=== PATIENT | female | born 1940 | race Caucasian/White ===

== ENCOUNTER 2020-10-23 09:36 | Inpatient (IN) | payer OTHER ==
[~2020-10-23] VITALS: Ht 157.5 cm; Wt 59.0 kg
--- NOTE | ~2020-10-23 | HC ---
[facility] [place] [address] CONSULTATION Name: MIMI PALOMINO Room #: 516-1 ADM IN M.R.#: [id number] Admission: 10/23/20 Attend Phys: Michael Escobar MD Discharge: Date of : 44 Report #: [id number] THIS REPORT FOR: cc: FAM - Family physician unknown FAM - Family physician unknown Mor Costa MD ~ DOC #: [id number] Mor Costa MD DATE OF SERVICE: 10/25/2020 HISTORY OF PRESENT ILLNESS: This is a 80-year-old female patient who was evaluated by me for stroke. This patient is a poor historian. Her memory is not very good. I talked to nurse practitioner who is seeing her from the hospitalist group. I reviewed the notes. The best history I can get from this patient is that she had a stroke about 1 year ago and she was in an outside hospital and then she was transferred to rehabilitation. The stroke affected the left side of the body. She says during that admission, she was also diagnosed with atrial fibrillation and was started on anticoagulation. I do not have any of those records. Now, she said she was admitted to [facility] for left-sided weakness. The history she gives is that she has mostly the left lower extremity weakness. The history is complicated by the fact that she has right leg weakness in the baseline. She has urinary incontinence for 6 months to 1 year as I understand. REVIEW OF SYSTEMS: A 14-point review of system is positive for chronic anticoagulation. She has a history of hypertension, looks like her memory is poor. She has a degenerative disease of the knee. Right hip, she has a problem for a long time and she has problem with the whole leg for a long time. 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 She is not complaining of any new eye, ENT, cardiac, respiratory, musculoskeletal, constitutional, dermatological, hematological, psychiatric throat, allergic symptoms associated with present symptomatology. PAST MEDICAL HISTORY: Positive for stroke with residual left-sided weakness. FAMILY HISTORY: Negative for any early age strokes. SOCIAL HISTORY: She does not smoke and she indicates that she used to use some alcohol at night, but a good log told me not to do it and she stopped doing that. She is alert. She can tell me what month it is. She had a tough time telling me what day it is, but ultimately she was able to do that. Her memory is poor, but speech is intact. Cranial nerve examination 2-12 looks mostly unremarkable. As best I can tell, she is weak in the left upper extremity compared to right, [facility] [address] [place] [address] CONSULTATION Name: GEORGETTEMIMI Room #: 516-1 [facility] IN M.R.#: [id number] Admission: 10/23/20 Attend Phys: Michael Escobar MD Discharge: Date of : 44 Report #: [id number] but she says mostly it is old. She is weak in the left lower extremity also, but even the right extremity, she moves poorly. There is no meningeal sign. There is no cerebellar sign. Fundus examination cannot be done. Reflexes are symmetrical. I can tell, but plantars she says she can appreciate the feeling in both lower extremities. She has a history of atrial fibrillation, but presently is in sinus rhythm. No respiratory difficulty was noticed. VITAL SIGNS: Blood pressure is 122/44, respirations 16, pulse of 62, temperature is 98. LABORATORY DATA: Indicate a white count of 7.1. Potassium is 3.1. Vitamin B12 is normal. IMPRESSION: Very complicated patient. I think first we need to see if she really extended her stroke or not. For that she will need an MRI of the brain. She is weak in both lower extremities. It is possible the left leg weakness is because of stroke and the right sided weakness is because of her hip issues, but she also is incontinent of the urine which may be because of rectal surgery, but in this case, I think a spine lesion which can cause all these symptoms, needs to be excluded. RECOMMENDATIONS: I will suggest doing the MRI of the brain and see if there is a new stroke. If new stroke occurred in spite of being on anticoagulation,further workup may be necessary in this patient. If she has a spine lesion that also needs to be addressed, but if MRIs are normal, then we need to reassess to see what further workup needs to be done. The patient will also follow this plan. Thank you very much for this referral. MD CASEY Chaney/FIONA By: [id number] Mor Costa MD /emmanuel
[2020-10-23] MEDS ORDERED: ELIQUIS5 MG PO (15:30)
[2020-10-23] MEDS ORDERED: LIPITOR20 MG PO (15:31)
[2020-10-23] MEDS ORDERED: COZAAR 25 MG TA25 MG PO (15:32)
[2020-10-23] MEDS ORDERED: DILTIAZEM ER180 M2 PO (15:33)
[2020-10-23 16:15] VITALS: BP 142/59
--- NOTE | 2020-10-23 16:15 | NUR ---
PT ARRIVED TO ROOM ACCOMPANIED BY IONA ROSS AND DEION GRANDSON. SHE LIVES IN HER OWN HOUSE AND HER GRANDSON STAYS THE NIGHT AND ALSO STAYS THURSDAY AND , IONA STAYS OVER ON THE WEEKEND. PT HAS STROKE FROM 04/17 AFFECTING LEFT SIDE. PT HAS WEAKNESS TO LEFT ARM AND LEFT LEG. PT ALSO HAS SOME WEAKNESS TO RT HIP. PT BORN WITHOUT A RT HIP BALL AND SOCKET. PT WAS ABLE TO CHEERLEAD AND RUN WITH FOOTBALL PLAYERS DOWN THE FIELD. PT STATED SHE USED TO HAVE PAIN A CHILD TO RT HIP AND PRAYED FOR PAIN RELIEF AND WAS ABLE TO HAVE NO PAIN. PT FELL A COUPLE OF TIMES AT HOME BEFORE HER HOSPITAL STAY. PT HAS WEAKNESS TO HANDS AND LEFT LEG. PT WEAR BRIEF FOR STRESS INCON. AND ALSO PT HAS URGENCY WITH BOWELS. 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 PT DAUGHTER IONA HAS DPOA AND PAPERWORK IN THE CHART. PT FROM [facility]. PT HAS PREVIOUS LEFT MASTECTOMY AND ARM ALERT BRACELET IS ON LEFT ARM. NO OPEN WOUNDS. PINK TO BUTTOCKS, SMALL SCRATCH TO RT HIP AREA AT GROIN FROM PREV. FALL. PT HAS OWN WALKER WITH HER, GLASSES, AND DENTURES. DTR STATED SHE HAD BOWEL SURGERY AND TOOK OUT 10 INCH OF COLON. PT DOES NOT HAVE AN APPITITE AND MOSTLY DRINKS PROTEIN SHAKES.
[2020-10-24 05:17] LABS: WBC 7.1 thou/uL (4.0-11.0)
[2020-10-24 05:22] LABS: HEMATOCRIT 40.2 % (37.0-47.0); HEMOGLOBIN 13.4 gm/dL (12.0-15.0); MCH 30.2 pg (26.0-34.0); MCHC 33.3 g/dL (28.0-37.0); MCV 90.7 fL (80.0-100.0); RBC 4.43 mil/uL (4.20-5.00); RDW 14.7 % (10.5-14.5)
[2020-10-24 05:41] LABS: CALCIUM 8.8 mg/dL (8.5-10.1); CREATININE 0.8 mg/dL (0.6-1.0); POTASSIUM 3.1 mmol/L (3.5-5.1)
--- NOTE | 2020-10-24 06:48 | NUR ---
ASSUMED CARE OF PT AT 1930 ON 10/23/20. PT IS A&OX4. IS ON ROOM AIR. DENIES PAIN. IS STABLE. HAS LEFT SIDED WEAKNESS. IS UP WITH 2 ASSIST TO BSC, STAND PIVOT WITH GB. FALL PRECAUTIONS & HOURLY ROUNDING CONTINUED THIS SHIFT. LABS & VITALS REVIEWED. CALL LIGHT WITHIN REACH. WILL CONTINUE TO MONITOR.
[2020-10-24 07:15] VITALS: BP 138/71
[2020-10-24 08:51] LABS: FOLIC ACID 34.5 ng/mL (8.6-58.9)
[2020-10-24 09:54] LABS: MAGNESIUM 1.9 mg/dL (1.8-2.4)
--- NOTE | 2020-10-24 11:49 | NUR ---
Nutrition: Received consult stating "poor intake". Pt voiced she doesn't like to eat and nothing ever sounds good. Has been for years. No weight loss- Reports UBW 120#. Usually eats 2 meals/day and drinks boost at least 3/day at home. Pt voices meat is hard to cut-adding mechanical chopped to diet order. Pt was pleased and stated she would eat more meat now. Food preferences obtained and menu ordering reviewed with pt. Will add Ensure enlive to all meals. Consider low nutrition risk due to stable weights and supplement intake able to meet majority of nutrition needs even despite small appetite for foods.
--- NOTE | 2020-10-24 12:48 | NUR ---
Received awake on bed. Due medications given as prescribed, able to swallow meds w/o difficulty. On room air. Vital signs stable. On MS, not on telemetry; no complains and signs of chest pain, crushing sensation and heaviness. With L sided weakness; assisted in ADLs. Falls bundle in place. On regular diet- modified to mechanically altered diet- tolerating well; no nausea, no vomiting and no abdominal pain noted; assisted and encouraged in eating and drinking. Continent of bowel and bladder, using bedside commode with moderate to max assist; gait belt. With redness at buttocks- Z guard applied; with sking tear at L groin- wound photo to be taken; dressing to be changed. No complains of pain made during assessment. No IV noted. Consults to Dr Kim, Dr Acevedo and Dr Costa called; a/w call back and further orders. To continue monitoring patient.
--- NOTE | 2020-10-24 16:14 | NUR ---
chart review. moshe spoke with daughter ying # [phone]. intro to moshe, transition of care and weekly team meeting. prior to hospital faith lives at home where her grandson and daughter are with her often in the home, has meals on wheels, "thu, , Thursday home alone from 10-4pm. they can call and check on her if needed, she sleeps sitting up, has walker and transport chair, upstairs she was walk in shower with bench and can shower her self. family has to get her up the stair 1 x week for shower, other days she sponge bath and daughter washes her hair in sink. lives in 3 story [facility]. she stays on the main level. might need extra help if she not back to her base line for at home."/ying. moshe education on life alert. will cont following as needed for dc needs.
[2020-10-24 19:44] VITALS: BP 122/44
--- NOTE | 2020-10-25 02:21 | NUR ---
assumed care approx 1900 evening 10/24. pt alert and oriented x4, talking on phone at change of shift. pt pleasant and cooperative. pt up to bathroom via w/c with 1 assist before hs. pt fitted with external catheter at hs and working well. pt appears to be sleeping soundly. bed alarm on and call light in reach. will continue to monitor.
--- NOTE | 2020-10-25 10:27 | NUR ---
WOUND CONSULT; A WOUND WAS IDENTIFIED TO THE LEFT LATERAL ABDOMINAL SKIN FOLD. ETIOLOGY IS UNDETERMINED BUT S/S CONSISTANT WITH A FUNGAL INFECTION. NO ODOR OR C/O PAIN. LINIAR WOUND MEASURES APPROX 5 X 0.2 X 0.1. RECOMMENDATIONS; -APPLY ANTIFUNGAL BARRIER CREAM BID/PRN DISCUSSED WITH AIMEE
--- NOTE | 2020-10-25 19:25 | NUR ---
ASSUMED CARE AT 0700. A&0X3. SEEMS TO BE FORGETFULL AND TENDS TO REPEAT HERSELF. DENIES PAIN. 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 LEFT SIDED WEAKNESS NOTED. ORTHO BRACE FOR R FOOT WAS ORDERED. MRI OF HEAD WAS PERFORMED DURING REQUESTED BY NEUROLOGY. NEW SKIN TEAR FOUND IN LEFT PANNOUS AREA. WOUND CARE NURSE HAS ASSESSED WOUND, AND NEW TREATMENT OF ANTIFINGAL CREAM INITIATED. SITE CARE ON NS CLEASE AND DRYING IS TO BE PERFORMED BEFORE APPLICATION OF CREAM. NO CONCERNS AT THIS TIME. WILL CONTINUE TO MONITOR.
[2020-10-25 20:00] VITALS: BP 115/71
--- NOTE | 2020-10-26 02:16 | NUR ---
assumed care approx 1900 evening 10/25. pt sitting up in bed at change of shift alert and oriented x4,pleasant and cooperative, somewhat forgetful. pt in good mood stated she had a good day with therapy. pt max assist x1 to w/c and transfer to toilet before hs. pt took hs meds with water tolerating well. pt fitted with external catheter at hs. pt appears to be sleeping soundly. bed alarm on and call light in reach. will continue to monitor.
[2020-10-26 08:00] VITALS: BP 132/75
--- NOTE | 2020-10-26 11:00 | NUR ---
ASSUMED CARE AT 0700. SLEPT FAIR. ALERT AND ORIENTATED X 2-3, FORGETFUL. PLEASANT. 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 NO COMPLAINS OF PAIN. TRANSFER IN WC TO BATHROOM. DIURESING. HAD A SMALL BM TODAY. APPETITE POOR, DRINK HER PROTEIN SUPPLEMENTS. L LAT PANNOUS WOUND TREATED WITH ANTIFUNGAL CREAM. PLAN FOR MRI OF SPINE TODAY. PARTICIPATES WITH THERAPY.
[2020-10-26 20:00] VITALS: BP 116/66; BP 166/66
--- NOTE | 2020-10-27 00:40 | NUR ---
PT ASSESSMENT COMPLETED AND VSS. MEDS GIVEN ORDERED AND WELL TOLERATED. FALL PRECAUTIONS IN PLACE. PT UP TO THE BATHROOM WITH ASST/GAIT/WHEELCHAIR. PT WAS ABLE TO PIVOT TO WHEELCHAIR WITH MAX ASST. VOIDING MODERATE AMOUNT OF YELLOW URINE. PT DENIES NEEDS. WILL CONTINUE TO MONITOR FREQUENTLY.
[2020-10-27 08:00] VITALS: BP 124/72
[2020-10-27 11:14] LABS: GLYCOHEMOGLOBIN (HGB A1C) 5.3
--- NOTE | 2020-10-27 12:32 | NUR ---
ASSUMED CARE OF PT THIS MORNING. PT HAS LEFT SIDED WEAKNESS POST CVA. PT IS A/OX4, AND NO OTHER DEFICITS NOTED. ASSESSMENTS WERE OTHERWISE UNREMARKABLE. PT IS TO PIVOT ONTO WHEELCHAIR AND ONTO THE TOILET. CALL LIGHT AND OTHER NEEDS ARE PLACED WITHIN REACH.
[2020-10-27 19:35] VITALS: BP 100/64
--- NOTE | 2020-10-28 03:56 | NUR ---
180 DEGREE PIVOT TO BSC, EXTERNAL CATHETER PLACED ON PATIENT PRIOR TO MIDNIGHT PER HER REQUEST, Z-GUARD TO ROUGH PINK AREA OF RIGHT BUTTOCK, TURNED TO LEFT SIDE. TAKES PILLS WITH WATER.
[2020-10-28 08:00] VITALS: BP 138/49
--- NOTE | 2020-10-28 10:45 | NUR ---
ASSUMED CARE OF PT AT 0700 THIS MORNING. PT WAS ASLEEP DURING REPORT. PT IS A/OX4 BUT FORGETFUL. SKIN IS INTACT WITH NO TENTING. SOME REDNESS ON LEFT BUTTOCKS WITH BLANCHING. PERIGARD CREAM WAS APPLIED. PT'S ASSESSMENTS OTHERWISE UNREMARKABLE. LUNGS ARE CLEAR ALL CHUNG, ABD SOFT NONTENDER. CALL LIGHT AND OTHER NEEDS ARE PLACED WITHIN REACH. MEDS GIVEN SCHEDULED.
[2020-10-28 20:08] VITALS: BP 116/50
--- NOTE | 2020-10-29 04:20 | NUR ---
assumed care approx 1900 evening 10/28. pt awake, pleasant and cooperative, somewhat forgetful at times. pt up to bathroom via w/c to void in toilet before hs. pt took hs meds with water tolerating well. pt fitted with external catheter at hs. pt appears to be sleeping soundly off and on. bed alarm on and call light in reach. will continue to monitor.
[2020-10-29 05:46] LABS: CALCIUM 8.7 mg/dL (8.5-10.1); CREATININE 0.7 mg/dL (0.6-1.0); MAGNESIUM 1.9 mg/dL (1.8-2.4); POTASSIUM 3.3 mmol/L (3.5-5.1)
[2020-10-29 05:49] LABS: EOSINOPHILS 2.1 % (0.0-3.0); HEMOGLOBIN 12.4 gm/dL (12.0-15.0)
[2020-10-29 05:51] LABS: ABSOLUTE NEUTROPHILS 3.6 thou/uL (1.4-8.2); BASOPHILS 0.6 % (0.0-2.0); HEMATOCRIT 36.7 % (37.0-47.0); LYMPHOCYTES 28.2 % (24.0-44.0); MCH 30.4 pg (26.0-34.0); MCHC 33.7 g/dL (28.0-37.0); MCV 90.2 fL (80.0-100.0); MONOCYTES 9.7 % (1.0-8.0); PLATELET COUNT 203 thou/uL (150-400); POLYS 59.4 % (36.0-66.0); RBC 4.07 mil/uL (4.20-5.00); RDW 14.7 % (10.5-14.5)
[2020-10-29 07:15] VITALS: BP 118/52
--- NOTE | 2020-10-29 10:42 | NUR ---
WOUND CARE F/U; THE WOUND IS HEALED. NO ERYTHEMA, DRAINAGE OR ANY S/S OF INFECTION OR ANY COMPLICATION. WOUND CARE WILL SIGH OFF.
--- NOTE | 2020-10-29 11:00 | NUR ---
ASSUMED CARE AT 0700. SLEPT FAIRLY WELL. ALERT AND ORIENTATED X 3. PLESANT AND FORGETFUL AT TIMES. DENIES ANY PAIN. L HAND CONTRACTION WITH WEAKNESS. UP WITH MOD ASSIST AND ABLE TO PIVOT FROM BED TO WC TO THE BATHROOM. DIURESING, HAD A SMALL BM TODAY. APPETITE IS POOR, DRINKS 100% OF PROTEIN SUPPLEMENT. ANTIFUNGAL CREAM APPLIED TO L PANNOUS AREA, HEALING AND DRY.
[2020-10-29 20:00] VITALS: BP 157/69
--- NOTE | 2020-10-30 03:19 | NUR ---
PT ASSESSMENT COMPLETED AND VSS. MEDS GIVEN ORDERED AND WELL TOLERATED. FALL PRECAUTIONS IN PLACE. UP TO THE BATHROOM WITH ASST/GAIT/WHEELCHAIR/PIVOT. VOIDING MODERATE AMOUNT OF YELLOW URINE. FEMALE EXTERNAL CATH LATER DURING THE NIGHT WITH MODERATE AMOUNT OF YELLOW URINE OUTPUT. ASST WITH REPOSITION FOR COMFORT. PT SLEEPING WELL. WILL CONTINUE TO MONITOR FREQUENTLY.
[2020-10-30 08:00] VITALS: BP 129/66
--- NOTE | 2020-10-30 11:45 | NUR ---
ASSUMED CARE AT 0700. SLEPT FAIR. ALERT AND ORIENTATED X 3, FORGETFUL. PLEASANT. DENIES ANY PAIN. UP AND ABLE TO PIVOT FROM BED TO WC AND ASSISTED TO BATHROOM. LEVI CARTER. SPOKE TO ALETHEA GAONA IF PT NEEDING A UA. NO CONCERNS FOR BACK PAIN OR DYSURIA. APPETITE FAIR, DRINK 100% OF PROTEIN SUPPLEMENT. PROGRESSING SLOWLY WITH THERAPY, DC PLANNING NEXT WEEK EITHER TO ASSSITED LIVING OR HOME WITH PRIVATE DUTY.
--- NOTE | 2020-10-30 12:08 | NUR ---
ADMISSION CARE TOOL FROM 10/23: EATING: SETUP DISCHARGE GOAL: INDEPENDENT GROOMING: PARTIAL/MOD A DISCHARGE GOAL: INDEPENDENT BATHING: PARTIAL/MOD A DISCHARGE GOAL: INDEPENDENT UE DRESSING: PARTIAL/MOD A DISCHARGE GOAL: INDEPENDENT LE DRESSING: MAX A DISCHARGE GOAL: SETUP TOILETING: PARTIAL/MOD A DISCHARGE GOAL: INDEPENDENT TOILET TRANSFER:PARTIAL/MOD A DISCHARGE GOAL: SETUP FOOTWEAR: DEPENDENT DISCHARGE GOAL: INDEPENDENT
--- NOTE | 2020-10-30 13:58 | NUR ---
team meeting, recommendation. dc 11/06, (pt, ot, st with vital stim, and nursing). son wants to look into [facility], cm left list for family to review. diet mech soft, thin liquid. will cont following as needed for dc needs.
[2020-10-30 16:21] LABS: URINE BILIRUBIN NEGATIVE (Negative); URINE BLOOD 3+ (Negative); URINE CLARITY CLOUDY; URINE COLOR YELLOW; URINE GLUCOSE-RANDOM* NEGATIVE (Negative); URINE KETONES NEGATIVE (Negative); URINE LEUKOCYTES-REFLEX 3+ (Negative); URINE NITRITE-REFLEX POSITIVE (Negative); URINE PROTEIN (DIPSTICK) NEGATIVE (Negative); URINE SPECIFIC GRAVITY 1.015 (1.005-1.035); URINE UROBILINOGEN 0.2 E.U./dl (0.2-1.0)
[2020-10-30 16:29] LABS: RENAL EPITHELIAL CELLS 0-3 Few /LPF (None Seen); SQUAMOUS 4-10 Moderate /LPF (0-3); WBC CLUMPS Occasional (None Seen)
[2020-10-30 16:30] LABS: BACTERIA-REFLEX >30 Many /HPF (None Seen); URINE RBC >20 Many /HPF (NONE SEEN)
[2020-10-30 16:31] LABS: CASTS None Seen /LPF (None Seen); CRYSTALS None Seen /LPF (None Seen)
[2020-10-30 19:28] VITALS: BP 129/69
--- NOTE | 2020-10-31 00:44 | NUR ---
PT ALERT AND ORIENTED X 4, FORGETFUL. UP IN W/C ALL EVENING. TRANSFERRED TO BED AT HS WITH ASSIST X 1. PT STARTED ON CIPRO LAST EVENING FOR UTI. EXTERNAL FEMALE CATHETER PLACED AT HS. PT DENIES PAIN OR DISCOMFORT. BED ALARM ON FOR SAFETY. PT APPEARS TO BE SLEEPING ON HOURLY ROUNDS.
--- NOTE | 2020-10-31 09:22 | EKG ---
[address] [place] [address] ELECTROCARDIOGRAM REPORT Name: MIMI PALOMINO Rito Room #: 516-1 ADM IN M.R.#: [id number] Admission: 10/23/20 Attend Phys: Michael Escobar MD Discharge: Date of : 44 Report #: [id number] [facility] Test Date: 2020-10-31 Test Time: 09:02:51 Pat Name: MIMI PALOMINO Department: Room: [facility] Gender: F Flatbed Stitcher: DOMINGA : 1940 Requested By: Melody Whalen Order Number: [id number] MD: Arnaldo Hillman Measurements Intervals [place] Rate: 53 P: 42 AK: 185 QRS: -17 QRSD: 102 T: 93 QT: 467 QTc: 439 Interpretive Statements Sinus bradycardia Nonspecific T abnormalities No previous ECG available for comparison Electronically Signed On 10-31-2020 9:22:18 CDT by Arnaldo Hillman [email or web address] <ELECTRONICALLY SIGNED> By: Arnaldo Hillman MD, [facility] 10/31/20921 1 1 Arnaldo Hillman MD, FACC /EPI
[2020-10-31 10:41] LABS: CHOLESTEROL 165 mg/dL (<200); HDL CHOLESTEROL 86 mg/dL (>40); LDL CHOLESTEROL 63 mg/dL (<100); TC:HDL 1.9 Ratio (Not establshd); TRIGLYCERIDE 80 mg/dL (<150); VLDL 16 mg/dL (<40)
--- NOTE | 2020-10-31 11:40 | NUR ---
moshe visited with faith yesterday after team and she agreed with dcp. moshe spoke with daughter ying today, via phone call. she agree with phone dcp, home with hh and possible private duty is what moms 1st choice but she needs to be able to "transfer by herself and get to restroom as well. any hh if we go that route that goes to [place] and [facility] close to here if we go to [facility] [place]. i will pass on this information to my brother thank you"/ying. will find resources for hh and [facility] closer to [place].
--- NOTE | 2020-10-31 12:10 | NUR ---
ASSUMED CARE AT 0700. A&0X4, W/ NOTED FORGETFULNESS. DENIES PAIN. ASSIT OF 1 WITH TRANSFERS,USING GAIT BELT. ABLE TO PIVOT W/ MODERATE ASSISTANCE REQUIRED. LS AR CLEAR TO AUSCULTATION, S1 & S2 PRESENT. DENIES CHEST PAIN. BOWEL SOUNDS PRESENT AND ACTIVE. PATIENT HAD A MEDIUM, FORMED BM DURING SHIFT. NO CONCERNS AT THIS TIME. WILL CONTINUE TO MONITOR.
--- NOTE | 2020-10-31 12:12 | NUR ---
Nutrition followup: pt eating highly variable amounts of meals, 50-100% meals yesterday and 5-10% of meals day prior. Drinks Ensure 100% typically TID which meets majority of needs. No new weight-has been stable. Able to order meals if desired. BM 5/4. Continue as low nutrition risk.
--- NOTE | 2020-10-31 12:48 | 2DMMODE ---
[facility] [place] [address] 2 D/M-MODE ECHOCARDIOGRAM Name: GEORGETTEMIMI Veras Room #: 516-1 ADM IN M.R.#: [id number] Admission: 10/23/20 Attend Phys: Michael Escobar MD Discharge: Date of : 44 Report #: [id number] THIS REPORT FOR: cc: FAM - Family physician unknown FAM - Family physician unknown Ar Huang MD [facility] ~ APPROVED REPORT Study performed: 10/31/2020 12:06:01 EXAM: Comprehensive 2D, Doppler, and color-flow Echocardiogram Patient Location: Bedside Room #: 516 Status: routine BSA: 1.59 HR: 55 bpm BP: 117/65 mmHg Rhythm: NSR Other Information Study Quality: Adequate Indications Atrial Fibrillation 2D Dimensions RVDd: 35.51 mm IVSd: 8.67 (7-11mm) LVOT Diam: 18.64 (18-24mm) LVDd: 38.30 mm PWd: 8.77 (7-11mm) LVDs: 24.70 (25-40mm) Aortic Root: 33.42 mm Volumes Left Atrial Volume (Systole) Single Plane 4CH: 26.32 mL Single Plane 2CH: 29.12 mL LA ESV Index: 18.00 mL/m2 Aortic Valve AoV Peak Johnny.: 1.41 m/s AO Peak Gr.: 7.96 mmHg LVOT Max P.47 mmHg LVOT Max V: 1.17 m/s AIDA Vmax: 2.26 cm2 [facility] [address] [address] 2 D/M-MODE ECHOCARDIOGRAM Name: MIMI PALOMINO Room #: 516-1 ADM IN M.R.#: [id number] Admission: 10/23/20 Attend Phys: Michael Escobar, Discharge: Date of : 44 Report #: [id number] Mitral Valve E/A Ratio: 1.1 MV Decel. Time: 181.01 ms MV E Max Johnny.: 0.72 m/s MV A Johnny.: 0.66 m/s MV PHT: 52.49 ms IVRT: 78.43 ms Pulmonary Valve PV Peak Johnny.: 0.83 m/s PV Peak Gr.: 2.77 mmHg Tricuspid Valve TR Peak Johnny.: 1.99 m/s RAP Estimate: 5.00 mmHg TR Peak Gr.: 16.00 mmHg PA Pressure: 21.00 mmHg Left Ventricle The left ventricle is normal size. There is normal LV segmental wall motion. There is normal left ventricular wall thickness. Left ventricular systolic function is normal. LVEF is 60-65%. The left ventricular diastolic function is normal. Right Ventricle The right ventricle is normal size. The right ventricular systolic function is normal. Atria The left atrium size is normal. The right atrium size is normal. Aortic Valve The aortic valve is normal in structure. Mild aortic regurgitation. There is no aortic valvular stenosis. Mitral Valve The mitral valve is normal in structure. Mild mitral annular calcification. Mild mitral regurgitation. No evidence of mitral valve stenosis. Tricuspid Valve The tricuspid valve is normal in structure. Mild tricuspid regurgitation. Estimated PAP is 20-25mmHg. Pulmonic Valve The pulmonary valve is normal in structure. There is no pulmonic valvular regurgitation. [facility] [address] [address] 2 D/M-MODE ECHOCARDIOGRAM Name: MIMI PALOMINO Room #: 516-1 ADM IN ..#: [id number] Admission: 10/23/20 Attend Phys: Michael Escobar, Discharge: Date of : 44 Report #: [id number] Great Vessels The aortic root is normal in size. The ascending aorta is normal in size. IVC is normal in size and collapses >50% with inspiration. Pericardium There is no pericardial effusion. <Conclusion> Normal left ventricular size/wall thickness Ejection fraction 60% Normal diastolic function Normal right ventricular size/function Normal atrial size Color-flow Doppler study was performed of the aortic/mitral/tricuspid/pulmonary valve Mild aortic/mitral valve insufficiency Mild mitral annular calcification Mild tricuspid valve insufficiency Pulmonary systolic pressure estimated 25 mmHg No pericardial effusion Normal aortic root size. <ELECTRONICALLY SIGNED> By: Ar Huang MD, [facility] 10/31/20 1248 1248 1248 Ar Huang MD, FACC /INF
[2020-10-31 20:00] VITALS: BP 143/74
--- NOTE | 2020-11-01 01:31 | NUR ---
PT ALERT AND ORIENTED X 4. TRANSFERS WITH ASSIST X 1 FROM W/C TO TOILET. PT DENIES PAIN OR DISCOMFORT. BED ALARM ON FOR SAFETY. PT APPEARS TO BE SLEEPING ON HOURLY ROUNDS.
[2020-11-01 05:50] LABS: ABSOLUTE NEUTROPHILS 3.6 thou/uL (1.4-8.2); BASOPHILS 0.5 % (0.0-2.0); EOSINOPHILS 2.4 % (0.0-3.0); HEMATOCRIT 39.6 % (37.0-47.0); HEMOGLOBIN 12.9 gm/dL (12.0-15.0); LYMPHOCYTES 28.1 % (24.0-44.0); MCH 30.1 pg (26.0-34.0); MCHC 32.6 g/dL (28.0-37.0); MCV 92.3 fL (80.0-100.0); PLATELET COUNT 196 thou/uL (150-400); RBC 4.28 mil/uL (4.20-5.00); RDW 14.7 % (10.5-14.5)
[2020-11-01 06:02] LABS: CALCIUM 9.1 mg/dL (8.5-10.1); CREATININE 0.7 mg/dL (0.6-1.0); MAGNESIUM 2.1 mg/dL (1.8-2.4)
[2020-11-01 08:31] VITALS: BP 133/64
--- NOTE | 2020-11-01 09:54 | NUR ---
hh that go to [facility] ( [facility] [facility] and [facility]). [facility] close to her phone ( [facility], [facility], and [facility]). will provide information to pt and daughter ying.
--- NOTE | 2020-11-01 11:13 | NUR ---
ASSUMED CARE AT 0700. SLEPT WELL. ALERT AND ORIENTATED X 3. DENIES ANY PAIN. L ABDOMINAL FOLD TREATED WITH ANTIFUNGAL CREAM AND IS HEALING. UP WITH MOD ASSIST TO WC AND TO BATHROOM. LUNG CLEAR, ON ROOM AIR. BOWEL SOUND PRESENT, HAD A BM TODAY. PARTICIPATING WITH THERAPY.
[2020-11-01 19:20] VITALS: BP 147/60
--- NOTE | 2020-11-02 03:01 | NUR ---
assumed care approx 1900 evening 11/01. pt alert and oriented x4 sitting up in w/c at change of shift. pt pleasant and cooperative. pt took hs meds with water tolerating well. pt up to bathroom to void several times this night. pt now back to bed. bed alarm on and call light in reach. will continue to monitor.
[2020-11-02 07:15] VITALS: BP 129/63
--- NOTE | 2020-11-02 11:00 | NUR ---
ASSUMED CARE AT 0700. SLEPT FAIRLY WELL. ALERT AND ORIENTATED X 3. PLESANT AND COOPERATIVE. DENIES ANY PAIN. AMBULATES IN THE ROOM WITH HER WC, CALLS FOR ASSISTANCE AND ABLE TO PIVOT FROM WC TO BATHROOM WITH MIN ASSIST. HAD COUPLE OF BM TODAY. APPETITE POOR, DRINK 100% OF SUPPLEMENT. ENC PT TO INC HER FREE WATER INTAKE. PARTICIPATING WITH THERAPY, PROGRESSING. CONT TO MONITOR.
--- NOTE | 2020-11-02 11:18 | NUR ---
spoke with daughter ying via phone call, she will call back at her break today. will cont following as needed for dc needs.
[2020-11-02 19:30] VITALS: BP 117/66
--- NOTE | 2020-11-03 02:08 | NUR ---
assumed care approx 0 evening 11/02. pt alert and oriented x4, pleasant and cooperative. pt took hs meds with water tolerating well. pt up to bathroom to void several times tonight via w/c and 1 assist. pt appears to be sleeping soundly in between bathroom trips. bed alarm on and call light in reach. will continue to monitor.
[2020-11-03 07:15] VITALS: BP 132/54
--- NOTE | 2020-11-03 10:42 | NUR ---
ASSUMED CARE AT 0700. PATIENT IS ALERT AND ORIENTED X4. PATIENT HAS LEFT SIDED WEAKNESS. PATIENT IS UP TO THE W/C WITH ASSIST OF 1 STAFF AND GAIT BELT. LUNGS ARE CLEAR AND DEMINISHED. ABD IS SOFT WITH BSX4. PATIENT HAD BM TODAY. VOIDING PATRICIO COLORED URINE. UP IN THE W/C FOR MEALS. FALL AND SAFETY PROTOCOLS IN PLACE. DENIES PAIN AT THIS TIME. CONTINUES TO PROGRESS TOWARDS D/C GOALS. WILL CONTINUE TO MONITER.
[2020-11-03 20:19] VITALS: BP 128/56
--- NOTE | 2020-11-04 02:34 | NUR ---
CALLING APPROPRIATELY FOR BATHROOM ASSIST, TRANSFERS TO AND FROM WITH STANDBY ASSIST AND USES GRAB BARS WELL TO SIT ON TOILET. DECLINES DOSE OF COLACE DUE TO MULTIPLE BM DURING DAY 5/8. TOLERATES MEDS WITH WATER. NOTES THAT SHE IS VOIDING LESS OFTEN SINCE ANTIBIOTICS TREATMENT FOR UTI INITIATED. ANTICIPATES GOING HOME IN 3 DAYS.
[2020-11-04 07:32] VITALS: BP 116/57
--- NOTE | 2020-11-04 13:17 | NUR ---
ASSUMED CARE AT 0700. SLEPT FAIR. ALERT AND ORIENTATED X 3. DENIES ANY PAIN. DIURESING ADEQ, ON PO ANTIBIOTICS. LAST BM ON 11/03. APPETITE POOR, ON PROTEIN SUPPLEMENTS. L SIDED WEAKNESS. ABLE TO PIVOT AND STAND WITH MIN ASSIST. ABLE TO SELF PROPEL IN THE WC IN THE ROOM, NO NEW CONCERNS. CONT TO MONITOR.
[2020-11-04 20:38] VITALS: BP 131/69
--- NOTE | 2020-11-05 00:23 | NUR ---
PT ALERT AND ORIENTED X 4. TRANSFERS TO W/C AND THEN TO TOILET WITH ASSIST X 1. LEFT SIDED WEAKNESS. PT C/O PAIN IN HER BACK. TYLENOL GIVEN ORDERED. BED ALARM ON FOR SAFETY. PT APPEARS TO BE SLEEPING ON HOURLY ROUNDS.
[2020-11-05 07:25] VITALS: BP 137/87
[2020-11-05 08:37] VITALS: BP 144/97
--- NOTE | 2020-11-05 09:42 | NUR ---
referrals faxed to the [facility] p# [phone], f# [phone], [facility] p# [phone], f# [phone], confirmation back on both faxes.
--- NOTE | 2020-11-05 10:41 | NUR ---
ASSUMED CARE AT 0700. SLEPT FAIRLY WELL. ALERT AND ORIENTATED X 3,FORGETFUL AT TIMES. PT REMINDED SEVERAL TIMES TO CALL FOR ASSISTANCE WHEN USING THE BATHROOM. DENIES ANY PAIN. DIURESING, HAD A BM TODAY. APPETITE FAIR, DRANK HER PROTEIN SUPPLEMENT. PARTICIPATING WITH THERAPY AND PROGRESSING TOWARDS GOAL. PLAN FOR DC TOMORROW.
--- NOTE | 2020-11-05 13:19 | NUR ---
DISCHARGE PLANNING. NM RECEIVED A CALL FROM DWAYNE AT [facility], AND ALL OF HER QUESTIONS WERE ANSWERED REGARDING DC PLANNING AND LEVEL OF ACTIVITY/ABILITY. PER DOCUMENTATION AND INTERVIEW INFORMATION, PT HAS BEEN ACCEPTED TO THE [facility] AND THEY USE [facility] IF THERE ARE THERAPY NEEDS. THEY WOULD PREFER IF PT WOULD ARRIVE SOMETIME AROUND NO[place] IF POSSIBLE. THIS WILL BE NOTED TO THE CM AND RN CARING FOR THE PT TODAY.
[2020-11-05 14:36] VITALS: BP 144/97
[2020-11-05 19:35] VITALS: BP 145/75
--- NOTE | 2020-11-05 23:26 | NUR ---
PT ASSESSMENT COMPLETED AND VSS. MEDS GIVEN ORDERED AND WELL TOLERATED. FALL PRECAUTIONS IN PLACE. UP TO THE BATHROOM WITH ASST/GAIT/WHEELCHAIR - PIVOT. PT IMPULSIVE AT TIMES AND FORGETING TO CALL FOR HELP. PT RESTING WELL AT THIS TIME. PT VERBALIZED SOME ANXIETY ABOUT GOING TO THE ASST LIVING FACILITY. PROVIDED MUCH EMOTIONAL SUPPORT.
[2020-11-06 05:58] LABS: ABSOLUTE NEUTROPHILS 3.5 thou/uL (1.4-8.2); BASOPHILS 0.7 % (0.0-2.0); EOSINOPHILS 2.5 % (0.0-3.0); HEMATOCRIT 38.4 % (37.0-47.0); HEMOGLOBIN 12.9 gm/dL (12.0-15.0); LYMPHOCYTES 28.9 % (24.0-44.0); MCH 30.5 pg (26.0-34.0); MCHC 33.6 g/dL (28.0-37.0); MCV 90.6 fL (80.0-100.0); MONOCYTES 9.1 % (1.0-8.0); PLATELET COUNT 199 thou/uL (150-400); POLYS 58.8 % (36.0-66.0); RBC 4.24 mil/uL (4.20-5.00)
[2020-11-06 06:02] LABS: CALCIUM 8.9 mg/dL (8.5-10.1); CREATININE 0.7 mg/dL (0.6-1.0); MAGNESIUM 2.1 mg/dL (1.8-2.4); POTASSIUM 3.2 mmol/L (3.5-5.1)
--- NOTE | 2020-11-06 06:39 | HC ---
[facility] [place] [id number] CONSULTATION Name: MIMI PALOMINO Room #: 501-A [facility] IN .R.#: [id number] Admission: 10/23/20 Attend Phys: Michael Escobar MD Discharge: Date of : 44 Report #: [id number] THIS REPORT FOR: cc: FAM - Family physician unknown FAM - Family physician unknown Barber Acevedo PhD ~ DOC #: [id number] Barber Acevedo, PhD DATE OF SERVICE: 10/28/2020 NEUROBEHAVIORAL STATUS EXAMINATION ATTENDING PHYSICIAN: Michael Escobar MD LIVERY CAR DRIVER: Barber Acevedo, PhD CLINICAL PRESENTATION: The patient is a 80-year-old female, initially admitted to [facility] on 10/21/2020 with an acute left-sided weakness for about 2 days. She was diagnosed with multiple infarcts, prominent on the left side and right basal ganglia infarct with extensive small vessel ischemic changes. The patient was transferred to the [facility] Acute Rehabilitation Unit for further evaluation and treatment prior to her return home. Her assessment on admission to the Rehab Unit is a right CVA with left hemiparesis, paroxysmal atrial fibrillation, dementia, history of CVA, hypertension, hyperlipidemia, DJD of the knee, right hip abnormality, a history of mastectomy with prosthetics, depression, and history of rectal prolapse in 05/2020. A complete description of her medical condition, history and medications can be found in her medical record. Neuropsychological consultation was requested to provide assistance in the assessment of cognitive and emotional status and provide recommendations and services. Prior to this most recent admission, the patient reports that she was living independently with the assistance of her grandson in her home. The patient states that her had several years ago and she had one son that is . She has one daughter that provides additional assistance as needed. The patient was vague about her number of children however, indicating she had three children and one son is still living. The patient discontinued driving several years ago. 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 The patient indicated that her daughter is providing assistance with medication and bill payment and her grandson is helping with the [facility] [address] [place] [address] CONSULTATION Name: GEORGETTEMIMI Rito Room #: 501-A [facility] IN [facility]#: [id number] Admission: 10/23/20 Attend Phys: Michael Escobar MD Discharge: Date of : 44 Report #: [id number] aspects of activities of daily living. TECHNIQUE UTILIZED: Clinical interview, review of medical records, staff consultation and behavioral observation, mini mental status exam 2 standard version, clock and clock drawing. EXAMINATION FINDINGS: The patient was alert and cooperative with the assessment. She accurately described the reason for her hospitalization. She does not present with an aphasia. Her thoughts are logical and goal oriented. The patient has a diagnosis of dementia. Frequent repetition was noted during the interview. Her symptoms are reported to include appetite, memory, and word finding. She does not report difficulty with mood, anxiety, or depression. She states sleep is fine. Performance on the MMSE 2 brief version is extremely low with a raw score of 7/16. She was 3/3 for initial registration, 3/5 for orientation to time, 0/[address], and 1/3 for immediate recall of 3 items after a brief time delay and distraction. Performance on the MMSE 2 standard version was extremely low with a raw score of 20/30 with a T score of 24 and percentile rank of less than 1. The patient was 4/5 for serial sevens, 2/2 for naming, 1/1 for repetition, 3/3 for comprehension. She could read and follow a single command and write a sentence. Copying was within normal limits. Clock drawing suggested some perseveration on numbers suggesting impaired executive functioning. Her performance on the verbal fluency assessment indicates letter fluency within normal limits with the raw score 25, T score of 51, percentile rank of 54. Category fluency was in the borderline range with a T score of 30 and percentile rank at 2. Overall, total fluency was low average with a T score of 37. percentile rank of 10. Perseverative responding was noted throughout verbal fluency. The patient is presenting with severe deficits in neurocognitive functioning. This type of presentation is consistent with an Alzheimer-type features and likely contributing vascular disease. DIAGNOSTIC IMPRESSION: Major neurocognitive disorder, possibly due to vascular disease and Alzheimer-type features, without behavior disorder. Extent to be determined likely in the moderate range. RECOMMENDATIONS: Continued speech therapy may be of benefit to assist in the development and implementation of compensatory strategies. The patient will continue to require assistance in the management of aspects of basic and instrumental activities of daily living. She is not presenting with depression or anxiety. A structured and supervised environment will be necessary for a safe return home. Consider medication to support memory. [facility] [address] [place] [address] CONSULTATION Name: MIMI PALOMINO Room #: 501-A [facility] IN M.R.#: [id number] Admission: 10/23/20 Attend Phys: Michael Escobar MD Discharge: Date of : 44 Report #: [id number] Thank you very much for allowing me to provide consultation on this patient. Barber Acevedo, PhD PALAK/I <ELECTRONICALLY SIGNED> By: Barber Acevedo, PhD 11/06/20 0639 [id number] Barber Acevedo, PhD /nt
[2020-11-06 07:15] VITALS: BP 140/51
--- NOTE | 2020-11-06 08:42 | NUR ---
PT ASSISTED TO TOILET X1 ASSIST. PT ABLE TO WIPE SELF AND PULL UP PANTS. PT TRANSFERED BACK OVER TO W/C. PT HAD BM AND VOIDED. PT DENIES ANY PAIN. PT TOOK MEDS THIS AM WITHOUT ANY ISSUES. PT LUNGS CLEAR. PT STATED SHE IS SPOILED. PT THANKING EVERYONE FOR THE CARE AND WANTING STAFF TO PUT NAME ON THE PRAYER LIST. PT LIKES TO PRAY WITH STAFF.
[2020-11-06] MEDS ORDERED: CARDIZEM CD120 MG PO ×4 (09:26→09:52)
[2020-11-06] MEDS ORDERED: BAYER CHEWABLE81 MG PO (09:26)
[2020-11-06] MEDS ORDERED: COLACE100 MG PO (09:26)
[2020-11-06] MEDS ORDERED: TYLENOL325 MG PO (09:30)
[2020-11-06] MEDS ORDERED: VOLTAREN GEL 1100 G2 TOP (09:30)
[2020-11-06] MEDS ORDERED: LIPITOR20 MG PO ×3 (09:50→09:52)
--- NOTE | 2020-11-06 10:23 | NUR ---
PT FAMILY HERE FOR PICK-UP. ADM KDUR 40MEQ PO FOR ONE TIME DUE TO LAB DRAW. FAMILY WANTING A NOTE ON DISCHARGE ABOUT NEEDING ASSISTANCE WITH MEDS AND MEMORY ISSUES. JIMENEZ REDDING SEEN PT AND WENT OVER MEDS. ALETHEA GAONA SEEN FAMILY AND PATIENT.
--- NOTE | 2020-11-06 11:30 | NUR ---
PT LEFT VIA W/C TO ELEVATOR. PT ABLE TO TRANSFER SELF FROM WHEELCHAIR TO CAR X1 ASSIST.
--- NOTE | 2020-11-06 11:36 | PLAN ---
[facility] [place] [address] REHAB UNIT PLAN OF CARE Name: MIMI PALOMINO Room #: 501-A [facility] IN [facility]#: [id number] Admission: 10/23/20 Attend Phys: Michael Escobar MD Discharge: Date of : 44 Report #: [id number] THIS REPORT FOR: cc: FAM - Family physician unknown FAM - Family physician unknown Michael Escobar MD ~ DOC #: [id number] Michael Escobar MD DATE OF SERVICE: 10/25/2020 OVERALL PLAN OF CARE REASON FOR ADMISSION: The patient is involved in an inpatient rehabilitation. She has prior right cerebrovascular accident with left hemiparesis, paroxysmal atrial fibrillation, dementia, history of hypertension, hyperlipidemia, degenerative arthritis of the knee. She has been working in therapies. She feels that she is doing better as far as the left hand. Sit to stand is mod assist. She is min assist to ambulate 22 feet with a front-wheeled walker, lower body dressing is mod assist, bathing is min assist. She has severe memory deficits and moderate cognitive deficits. The overall plan of care is based on the pre-admit screen and information garnered from therapy assessments. 1. Estimated length of stay is probably around 14 days to 17 days pending progress. 2. Medical prognosis is reasonably good. 3. Anticipated interventions includes the interdisciplinary acute inpatient rehabilitation program. 4. Anticipated functional outcomes would be for the patient to improve as far as transfers, mobility, ADLs, cognition, communication, left-sided coordination, so that she can hopefully return close to her prior functional level so she can return back home with family. 5. Discharge destination would be back in the house. There is a daughter there during the day and a grandson stays overnight. The patient premorbidly was able to ambulate short distance with a front-wheeled walker, but has mostly been using a transport chair. 6. Expected therapy by discipline includes PT, OT and speech 1 hour per day each five days a week throughout the duration of the acute inpatient rehabilitation stay. The patient's prognosis for significant practical improvement within a reasonable period of time appears good. Given the patient's complex medical condition and risk of further medical complications, rehabilitation services could not be safely provided at a lower level of care such as a [facility] facility. [address] [address] REHAB UNIT PLAN OF CARE Name: MIMI PALOMINO Room #: 501-A [facility] IN [facility].#: [id number] Admission: 10/23/20 Attend Phys: Michael Escobar MD Discharge: Date of : 44 Report #: [id number] Michael Escobar MD DGS <ELECTRONICALLY SIGNED> By: Michael Escobar MD 11/06/20 1136 [id number] [id number] Michael Escobar MD /emmanuel
[2020-11-06 16:07] VITALS: BP 144/97
== END 2020-11-06 11:30 | disposition home health service (06) | DRG 56 ==
PROVIDERS: Internal Medicine Cardiovascular Disease; Nurse Practitioner; Nurse Practitioner Family; ADMIT Physical Medicine & Rehabilitation; ATTEND Physical Medicine & Rehabilitation
DX: I69.354 Hemiplegia and hemiparesis following cerebral infarction affecting left non-dominant side (principal); I63.9 Cerebral infarction, unspecified; E87.0 Hyperosmolality and hypernatremia; N39.0 Urinary tract infection, site not specified; I48.0 Paroxysmal atrial fibrillation; F03.90 Unspecified dementia, unspecified severity, without behavioral disturbance, psychotic disturbance, mood disturbance, and anxiety; I10 Essential (primary) hypertension; E78.5 Hyperlipidemia, unspecified; F32.9 Major depressive disorder, single episode, unspecified; Z20.822 Contact with and (suspected) exposure to COVID-19; R29.6 Repeated falls; M17.0 Bilateral primary osteoarthritis of knee; F01.50 Vascular dementia, unspecified severity, without behavioral disturbance, psychotic disturbance, mood disturbance, and anxiety; E87.6 Hypokalemia; G60.0 Hereditary motor and sensory neuropathy; R00.1 Bradycardia, unspecified; B96.89 Other specified bacterial agents as the cause of diseases classified elsewhere; Z79.899 Other long term (current) drug therapy; Z90.710 Acquired absence of both cervix and uterus; Z90.10 Acquired absence of unspecified breast and nipple
CPT/HCPCS: 10112